=== PATIENT | female | born 1965 | race Caucasian/White ===

== ENCOUNTER → 2017-04-19 | Outpatient (CLI) | payer MEDICAID ==
[~2017-04-19] MED LIST: ADVAIR 10028 PUFF/IN IN; AMITRIPTYLINE10 MG PO; ASPIRIN 81MG TA81 MG PO; BENAZEPRIL10 MG PO; CALCIUM500 MG PO; FISH OIL O1600 MG/5 PO; LEVAQUIN500 MG PO; METOPROLOL SUCC25 M1 PO; NEURONTIN 300M300 MG PO; PAROXETINE HCL20 MG PO; PRAVASTATIN 20M20 MG PO; SPIRIVA HA1 PUFF/INH IH; TRAZADONE HYDR100 MG PO
--- NOTE | 2017-04-19 13:58 | RADIOLOGY REPORT PS360 ---
HIP LT 2-3V W/PELVIS IF PERFOR HISTORY: Left hip pain LEFT FOOT/ANKLE PAIN,LEFT HIP PAIN ORDERING PHYSICIAN: FAITH BAUM PATIENT AGE: 51 years COMPARISON: None FINDINGS: No fracture or dislocation is evident. No significant degenerative change. No lytic or blastic change. Unremarkable soft tissues IMPRESSION: Negative left hip
--- NOTE | 2017-04-19 13:59 | RADIOLOGY REPORT PS360 ---
FOOT-LT-3 VIEWS HISTORY: LEFT FOOT/ANKLE PAIN,LEFT HIP PAIN ORDERING PHYSICIAN: FAITH BAUM PATIENT AGE: 51 years COMPARISON: None FINDINGS: No fracture or dislocation. No lytic or blastic change. There is normal mineralization.. The joint spaces are well-preserved. No significant degenerative/arthritic changes. No erosive changes evident. There is a well-circumscribed calcaneal spur measuring 10 mm nonspecific without evidence of erosive change. IMPRESSION: No acute finding. Calcaneal spur
--- NOTE | 2017-04-19 14:00 | RADIOLOGY REPORT PS360 ---
ANKLE-LT-3 VIEWS HISTORY: LEFT FOOT/ANKLE PAIN,LEFT HIP PAIN ORDERING PHYSICIAN: FAITH BAUM PATIENT AGE: 51 years COMPARISON: None FINDINGS: No fracture or dislocation. No lytic or blastic change. There is normal mineralization.. The joint spaces are well-preserved. No significant degenerative/arthritic changes. No erosive changes evident. The talar dome has an unremarkable appearance IMPRESSION: Negative left ankle, no acute finding
== END ==
LOC: RAD 10:46
DX: M79.672 Pain in left foot (principal); M25.572 Pain in left ankle and joints of left foot; M25.552 Pain in left hip